=== PATIENT | male | born 1960 | race Caucasian/White ===

== ENCOUNTER 2025-02-27 15:12 | Inpatient (IN) | payer OTHER, MEDICARE ==
[~2025-02-27] VITALS: Ht 185.4 cm; Wt 110.7 kg
[2025-02-27 17:41] LABS: BASOPHILS % 0.7 % (0.0-2.0); EOSINOPHILS % 2.8 % (0.0-5.0); HEMATOCRIT. 39.1 % (42.0-52.0); HEMOGLOBIN. 13.2 g/dL (14.0-18.0); LYMPHOCYTES % 22.4 % (20.0-50.0); MEAN PLATELET VOLUME 9.0 fl (7.4-10.4); MONOCYTES % 10.2 % (2.0-8.0); NEUTROPHILS % 63.9 % (40.0-76.0); PLATELET 191 x1000/uL (130-400); RED BLOOD CELL COUNT 4.07 mill/uL (4.7-6.1); RED CELL DISTRIBUTION WIDTH 14.2 % (11.6-14.6)
[2025-02-27 17:56] LABS: CREATININE 0.7 mg/dL (0.6-1.3)
[2025-02-27 17:57] LABS: TROPONIN I HIGH SENSITIVITY < 4 ng/L (3.0-53); UREA NITROGEN BLOOD 21 mg/dL (9-23)
[2025-02-27 19:43] LABS: TROPONIN I HIGH SENSITIVITY < 4 ng/L (3.0-53)
[2025-02-27 20:24] VITALS: BP 121/47; PULSE 57; RESP 15; TEMP 36.5; TEMP 36.6; O2SAT 98
[2025-02-27] MEDS ORDERED: trazadone PO (20:49)
[2025-02-27] MEDS ORDERED: METF-1150 PO (20:49)
[2025-02-27] MEDS ORDERED: GLIP10TA17 PO (20:49)
[2025-02-27] MEDS ORDERED: BENA10TA74 PO (20:49)
[2025-02-27] MEDS ORDERED: TERA10CA4 PO (20:54)
[2025-02-27] MEDS ORDERED: AMLO5TAB88 PO (20:54)
[2025-02-27] MEDS ORDERED: FINA5TAB11 PO (20:54)
[2025-02-27] MEDS ORDERED: PIOG15TA68 PO (20:54)
[2025-02-27] MEDS ORDERED: rosuvastatin PO (20:54)
[2025-02-27] MEDS ORDERED: DEXTROSE 50% WATER 50ML SYRINGE IV PRN (22:45)
[2025-02-27] MEDS ORDERED: ACETAMINOPHEN 325MG TABLET PO PRN (23:00)
[2025-02-28] VITALS: BP 121/80; PULSE 64; RESP 13; TEMP 36.7; O2SAT 93
[2025-02-28 04:00] VITALS: BP 112/65; PULSE 62; RESP 14; TEMP 36.8; O2SAT 96
[2025-02-28] MEDS: ACETAMINOPHEN 325MG TABLET PO PRN (04:40)
[2025-02-28] MEDS: BLOOD SUGAR DIAGNOSTIC STRIP TEST SCH (06:05)
[2025-02-28 08:00] VITALS: BP_SYST 112; BP_SYST 115; BP_SYST 117; BP_DIAS 68; BP_DIAS 70; BP_DIAS 75; PULSE 62; RESP 15; TEMP 36.8; O2SAT 98
[2025-02-28 08:41] LABS: BASOPHILS % 0.5 % (0.0-2.0); EOSINOPHILS % 3.6 % (0.0-5.0); HEMATOCRIT. 37.4 % (42.0-52.0); HEMOGLOBIN. 12.8 g/dL (14.0-18.0); LYMPHOCYTES % 26.6 % (20.0-50.0); MEAN PLATELET VOLUME 9.1 fl (7.4-10.4); MONOCYTES % 9.7 % (2.0-8.0); NEUTROPHILS % 59.6 % (40.0-76.0); PLATELET 181 x1000/uL (130-400); RED BLOOD CELL COUNT 3.92 mill/uL (4.7-6.1); RED CELL DISTRIBUTION WIDTH 14.0 % (11.6-14.6)
[2025-02-28 08:55] LABS: CREATININE 0.7 mg/dL (0.6-1.3)
[2025-02-28 08:56] LABS: LDL CHOLESTEROL 46 mg/dL (5-100); TRIGLYCERIDE 95 mg/dL (0-150); UREA NITROGEN BLOOD 15 mg/dL (9-23)
[2025-02-28] MEDS ORDERED: MEDICATION NOT ON FORMULARY EA (Terazosin Hcl 10 MG) PO SCH (09:00)
[2025-02-28] MEDS ORDERED: AMLODIPINE 10MG TABLET PO SCH (09:00)
[2025-02-28] MEDS ORDERED: METFORMIN HCL 1000 MG PO SCH (09:00)
[2025-02-28] MEDS: PIOGLITAZONE 15MG TABLET PO SCH (09:00)
[2025-02-28] MEDS ORDERED: LOTEN PO SCH (09:00)
[2025-02-28] MEDS ORDERED: LISINOPRIL 10MG TABLET PO SCH (09:00)
[2025-02-28] MEDS: FINASTERIDE 5MG TABLET PO SCH (09:01)
[2025-02-28] MEDS: METFORMIN HCL 500MG TABLET PO SCH (09:01)
[2025-02-28] MEDS: ASPIRIN 81MG TABLET PO SCH (09:01)
[2025-02-28] MEDS: INSULIN LISPRO 100 UNITS/ML SUBCUT SCH (09:02)
[2025-02-28] MEDS: ENOXAPARIN 30MG/0.3ML SYR SUBCUT SCH (09:03)
[2025-02-28 09:32] LABS: HEPATITIS C AB NON REACTIVE (Neg) (Negative)
[2025-02-28 11:26] LABS: CLARITY URINE CLEAR (CLEAR); COLOR URINE YELLOW (YELLOW); GLUCOSE URINE 1+ (NEGATIVE); KETONES URINE NEGATIVE (NEGATIVE); LEUKOCYTE ESTERASE URINE NEGATIVE (NEGATIVE); NITRITE URINE NEGATIVE (NEGATIVE); OCCULT BLOOD URINE NEGATIVE (NEGATIVE); PH URINE 6.0 (4.5-8.0); PROTEIN URINE NEGATIVE (NEGATIVE); SPECIFIC GRAVITY URINE 1.018 (1.005-1.030); UROBILINOGEN URINE 2.0 E.U./dL (0.2-1.0)
[2025-02-28 11:44] LABS: MUCUS URINE 2+ /lpf (NONE/TRACE); SQUAMOUS EPITHELIAL CELL URINE RARE /lpf (RARE/1+)
[2025-02-28 11:45] LABS: RBC URINE NONE SEEN /hpf (0-2); WBC URINE 0-2 /hpf (0-2)
[2025-02-28 11:46] LABS: BACTERIA URINE NONE SEEN
[2025-02-28 12:00] VITALS: BP 122/78; PULSE 59; RESP 16; TEMP 36.6; O2SAT 98
[2025-02-28 15:51] VITALS: BP 122/75; PULSE 61; RESP 16; TEMP 36.8; O2SAT 98
[2025-02-28 16:19] VITALS: BP 122/75; PULSE 61; TEMP 97.9; O2SAT 98
[2025-02-28] MEDS ORDERED: ATORVASTATIN CALCIUM 40MG TABLET PO SCH (21:00)
[2025-02-28] MEDS ORDERED: TRAZODONE HCL 50MG TABLET PO SCH (21:00)
[2025-02-28] MEDS ORDERED: TERAZOSIN HCL 5MG CAPSULE PO SCH (21:00)
== END 2025-02-28 18:28 | disposition home or self-care (01) | DRG 74 ==
LOC: ER 15:12 → 3WST 18:23 → EDBEDREQ 18:26 → EDBEDREQTM 18:26 → ENRESERV 19:12
PROVIDERS: ADMIT Internal Medicine; ATTEND Internal Medicine
DX: G90.89 Other disorders of autonomic nervous system (principal); E78.5 Hyperlipidemia, unspecified; I10 Essential (primary) hypertension; E11.9 Type 2 diabetes mellitus without complications; Z79.899 Other long term (current) drug therapy
CPT/HCPCS: 36415; 70551; 71045; 80048; 80061; 81003; 82962; 83036; 83880; 84484; 85025; 85379; 86705; 87340; 93005; 99285; A4606; J1650; J1815